=== PATIENT | female | born 1960 | race Caucasian/White ===

== ENCOUNTER 2019-10-22 09:32 | Outpatient (REF) | payer SELFPAY ==
[2019-10-22 11:59] LABS: Estmated Average Glucose 123; Hemoglobin A1C 5.9 % (4.0-6.0)
[2019-10-22 12:30] LABS: Chol HDL Ratio 2.83 mg/dL (0.0-4.40); Cholesterol 150 mg/dL (0-200); Glucose 98 mg/dL (65-115); HDL Cholesterol 53 mg/dL (60-100); LDL Cholesterol Calculated 64 mg/dL (50-129); LDL HDL Ratio 1.21 RATIO (0.00-3.22); Triglycerides 164 mg/dL (0-150)
== END 2019-10-22 09:33 | disposition home or self-care (01) ==
LOC: LAB 09:32
PROVIDERS: Family Provider Family Medicine; Visit Provider Dermatology
DX: Z01.89 Encounter for other specified special examinations (principal)
CPT/HCPCS: 80061; 82947; 83036

== ENCOUNTER 2024-02-11 15:40 | Outpatient (CLI) | payer SELFPAY ==
--- NOTE | 2024-02-11 15:45 | XR_ITS ---
WS: [id number] Exam: XR lumbar spine 2-3V* [id number] Date/Time of Exam: 02/11/2024 3:45 PM Reason For Exam: M54.17 - Radiculopathy, lumbosacral region No acute fracture or dislocation. Degenerative disc narrowing at L3-4, L4-5 and L5-S1. Anterior bridg ing osteophytes at L5-S1. 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 XR/XR lumbar spine 2-3V* [id number] IMPRESSION: 1. Moderate degenerative changes. 2. No fracture or malalignment.
== END 2024-02-11 15:41 | disposition home or self-care (01) ==
LOC: RAD 15:41
PROVIDERS: Family Provider Family Medicine; PCP Family Medicine; Visit Provider Family Medicine
DX: M47.27 Other spondylosis with radiculopathy, lumbosacral region (principal); M25.78 Osteophyte, vertebrae
CPT/HCPCS: 72100